=== PATIENT | female | born 1970 | race Caucasian/White ===

== ENCOUNTER 2016-06-21 16:35 | Emergency (ER) | payer OTHER ==
[2016-06-21 16:46] VITALS: BP 121/77; PULSE 77; RESP 17; TEMP 98.1; O2SAT 95
--- NOTE | 2016-06-21 17:21 | EDPHY ---
H & P Time Seen by Provider: 06/21/16 16:52 HPI/ROS: CHIEF COMPLAINT: Left great toe pain HISTORY OF PRESENT ILLNESS: 46-year-old female presents to the emergency department complaining of left great toe bruising and swelling. 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 Patient reports he immediately swelled and bruised, today she has not been walking on it though it is feeling better, no pain and when she bears weight, earlier she felt a pop and more bruising occurred. She denies numbness or tingling to this toe, pain is mild with ambulation. Smoking Status: Never smoked Physical Exam: GEN: Awake, alert, oriented, no acute distress RESP: nl resp effort MSK: Left great toe ecchymosis just proximal to toenail and ecchymosis to lateral toe, tenderness to palpation over IP joint, no tenderness over MTP joint , sensation intact to light touch, cap refill less than 2 seconds SKIN: No break in skin Constitutional: Initial Vital Signs Temperature (C) 36.7 C 06/21/16 16:43 Heart Rate 77 06/21/16 16:43 Respiratory Rate 17 06/21/16 16:43 Blood Pressure 121/77 H 06/21/16 16:43 O2 Sat (%) 95 06/21/16 16:43 O2 Delivery Mode Room Air Allergies/Adverse Reactions: acetaminophen [From Vicodin] Allergy (Verified 06/21/16 16:43) hydrocodone bitartrate [From Vicodin] Allergy (Verified 06/21/16 16:43) morphine Allergy (Verified 06/21/16 16:42) oxycodone HCl [From OxyContin] Allergy (Verified 06/21/16 16:42) Home Medications: Medication Instructions Recorded NK [No Known Home Meds] 06/21/16 MDM/Departure - MDM Diagnostics: Left great toe x-ray independently reviewed by me- Impression: Proximal lateral intra-articular fracture involving the base of the great toe distal phalanx. Dictated By: Fco Adhikari MD - Depart Disposition: Home, Routine, Self-Care Clinical Impression: Closed fracture of distal phalanx of left great toe Qualifiers: Encounter type: initial encounter Fracture alignment: nondisplaced Qualified Code(s): S92.425A - Nondisplaced fracture of distal phalanx of left great toe, initial encounter for closed fracture Condition: Good Instructions: Toe Fracture (ED) Additional Instructions: Rest, ice, elevate, take 600mg of ibuprofen every 8 hours with food for 3-5 days as needed for pain and swelling. Hard-soled shoe for ambulation. Heel weight bare. Follow up with the brine supervisor or orthopedist at 1st available appointment in the next 7 days. Return to the emergency department for any numbness, tingling, discoloration of you limb or other concerns. Referrals: Kaycee Manriquez [Doctor of Podiatric Medicine] - As per Instructions (Consumer Loan Manager on-call) Nicolas Flores MD [Medical Doctor] - As per Instructions (Orthopedist on-call)
== END 2016-06-21 18:03 | disposition home or self-care (01) ==
DX: S92.425A Nondisplaced fracture of distal phalanx of left great toe, initial encounter for closed fracture (principal); W23.1XXA Caught, crushed, jammed, or pinched between stationary objects, initial encounter; Y92.39 Other specified sports and athletic area as the place of occurrence of the external cause; Y99.8 Other external cause status; Y93.01 Activity, walking, marching and hiking
CPT/HCPCS: L3260

== ENCOUNTER 2016-07-02 14:27 | Emergency (ER) | payer OTHER ==
[2016-07-02 14:33] VITALS: RESP 16
--- NOTE | 2016-07-02 15:48 | EDPHY ---
H & P Time Seen by Provider: 07/02/16 14:37 HPI/ROS: CHIEF COMPLAINT: left great toe pain HISTORY OF PRESENT ILLNESS: 46-year-old female presents emergency department complaining of left great toe pain. Patient was diagnosed with a distal phalanx fracture in the emergency department 11 days ago. Patient has not followed up with the doll wig maker yet. Patient reports yesterday at work she dropped a gymnastics mat on her toe and is concerned the fracture worsened. She denies other complaints. Smoking Status: Never smoked Physical Exam: GEN: Awake, alert, oriented, no acute distress RESP: nl resp effort MSK: Left great toe with tenderness to palpation to IP joint. No swelling, no discoloration, sensation intact to light touch, cap refill less than 2 seconds SKIN: No break in skin Constitutional: Initial Vital Signs Temperature (C) 36.7 C 07/02/16 14:30 Heart Rate 78 07/02/16 14:30 Respiratory Rate 16 07/02/16 14:30 Blood Pressure 104/79 07/02/16 14:30 O2 Sat (%) 97 07/02/16 14:30 O2 Delivery Mode Room Air Allergies/Adverse Reactions: acetaminophen [From Vicodin] Allergy (Verified 07/02/16 14:30) hydrocodone bitartrate [From Vicodin] Allergy (Verified 07/02/16 14:30) morphine Allergy (Verified 07/02/16 14:30) oxycodone HCl [From OxyContin] Allergy (Verified 07/02/16 14:30) Home Medications: Medication Instructions Recorded NK [No Known Home Meds] 06/21/16 MDM/Departure - MDM Diagnostics: Toe x-ray independently reviewed by me, unchanged proximal lateral intra- articular fracture involving the base of the great toe distal phalanx. - Depart Disposition: Home, Routine, Self-Care Clinical Impression: Toe fracture, left Qualifiers: Encounter type: subsequent encounter Toe: great toe Fracture type: closed Phalanx: distal Fracture alignment: nondisplaced Condition: Good Instructions: Toe Fracture (ED) Additional Instructions: Weight-bearing as tolerated, continue with rest, ice, ibuprofen 600 mg every 8 hours with food for 3-5 days. Follow up with your worker's compensation doctor and doll wig maker at 1st available appointment. Stand Alone Forms: Work Comp Follow Up Referrals: NONE *PRIMARY CARE P,. [Primary Care Provider] - As per Instructions
[2016-07-02 16:06] VITALS: BP 114/77; PULSE 81; TEMP 97.9; O2SAT 95
== END 2016-07-02 16:06 | disposition home or self-care (01) ==
DX: S92.425D Nondisplaced fracture of distal phalanx of left great toe, subsequent encounter for fracture with routine healing (principal); X58.XXXD Exposure to other specified factors, subsequent encounter